=== PATIENT | female | born 1950 | race Caucasian/White ===

== ENCOUNTER 2016-04-11 10:16 | Emergency (ER) | payer MEDICARE, MEDICAID ==
--- NOTE | 2016-04-11 10:29 | EDPRACDOC ---
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 Mode of Arrival:: Ambulance Home Medications: Home Medications Clopidogrel Bisulfate [Plavix] 75 mg PO DAILY 09/08/12 Ramipril [Altace] 2.5 mg PO DAILY 09/08/12 Fenofibrate [Lofibra] 160 mg PO DAILY 01/10/14 Insulin Glargine [Lantus Pen] 30 units SQ HS 01/10/14 Omeprazole [Prilosec] 40 mg PO DAILY 01/10/14 Furosemide [Lasix] 20 mg PO DAILY #14 tablet 08/08/15 Budesonide [Pulmicort] 0.5 mg NEB DAILY PRN 10/02/15 Fluticasone/Salmeterol [Advair 250-50] 1 inh INH BID 10/02/15 Levothyroxine [Synthroid, Levoxyl] 150 mcg PO DAILY 10/02/15 Montelukast Sodium [Singulair] 10 mg PO QHS 10/02/15 Ropinirole HCl 1 mg PO QHS 10/02/15 Divalproex Sodium [Divalproex Sodium ER] 500 mg PO BID 01/21/16 Doxepin HCl 10 mg PO HS 01/21/16 Acetaminophen Tablet [TYLENOL Tablet] 650 mg PO Q6H PRN #1 tablet 01/25/16 Alprazolam [Xanax] 0.5 mg PO BID PRN #60 tablet 01/25/16 Aspirin (Enteric Coated) [Halfprin] 81 mg PO DAILYWM #30 tablet 01/25/16 Atorvastatin Calcium [Lipitor] 10 mg PO DAILY@1800 #30 tablet 01/25/16 Metoprolol Tartrate [Lopressor] 100 mg PO 0600,1800 #60 tablet 01/25/16 POTASSIUM CHLORIDE Tablet [K-DUR 20 mEq Tablet*] 20 meq PO BIDWM #60 tab.er.prt 01/25/16 Oxycodone HCl/Acetaminophen [Percocet 5-325 mg Tablet] 1 each PO TID #60 tablet 01/28/16 Allergies/Adverse Reactions: Allergies Allergy/AdvReac Type Severity Reaction Status Date / Time fish derived Allergy Unknown Hives* Verified 01/21/16 15:54 ciprofloxacin [From Cipro] Allergy Hives Verified 01/21/16 15:54 Penicillins Allergy Hives Verified 01/21/16 15:54 - History of Present Illness Onset: THIS AM - Other History Other History: BLOOD SUGAR FOUND TO BY 50 AT [facility]. DID NOT FALL OUT OF WHEELCHAIR. EMS FOUND PT TO HAVE BLOOD SUGAR 13 AT SNF. GIVEN GLUCAGON. PT FEELS WEAK. PT REPORTS BLOOD SUGAR DROPPING ALL WEEK. BEING TREATED FOR UTI. DENIES CP/ SOB/N/V/URINARY SYMPTOMS. ED Past Medical History - History Reviewed Yes Nurses notes reviewed and agree except as marked - Patient Medical History Neurological History: Reports: Cerebrovascular Accident ("Mini Strokes" several) Cardiac History: Reports: Coronary Artery Disease, Hypertension, Cardiac Catheterization (1974), Stress Test ([place] ([employer] [place]one)), Hypercholesterolemia, Syncope (TIAs, Stroke) Respiratory History: Reports: Asthma, COPD (NEBS), Pneumonia, Emphysema GI/ History: Reports: Urinary Tract Infection, Gastroesophageal Reflux Musculoskeletal History: Reports: Arthritis, Gout, Osteoarthritis Psychological History: Reports: Depression, Anxiety. Denies: Substance Use Disorder Systemic History: Reports: Cancer (Lung cancer treated with radiation but no surgery), Anemia, Diabetes, Hypothyroidism Surgical History: Reports: Cholecystectomy, Hysterectomy, Cardiac Catheterization (1974), Hernia Surgery (ventral hernia repair), Tonsillectomy/ Adnoidectomy, Other (B lens implants,ventral hernia repair, aortoiliac BYPASS, fem-pop L) Date of Last Radiation Treatment: 2010 Date of Last Chemotherapy Date: 2010 - Family Medical History Reports: Hypertension (Mother), Diabetes (Mother), Cancer (Mother,Father), Cardiac Disorders (Mother). Denies: Stroke - Social Medical History Smoking Status: Heavy tobacco smoker (5 or more cigarettes/day or daily pipe/ cigar) (reports 1/2 pack per day) Social History: Denies: Substance Use Disorder EDM Review of Systems - Review of Systems ROS Negative Except as Marked: Yes All systems reviewed and were negative except as marked Constitutional: Fatigue, Weakness Eyes: No Symptoms Reported Respiratory: Cough Cardiovascular: No Symptoms Reported Gastrointestinal: No Symptoms Reported - Physical Exam Constitutional: Alert (Awake), No apparent distress Oriented to: Time, Person, Place Last recorded Vital Signs: Oxygen Pulse Oxygen Saturation O2 Device Oxygen Flow Rate Fraction of Inspired Oxygen ( FIO2) - HEENT Head: Normal ( normocephalic) Eye Exam: Normal (PERRL, EOMI, Sclera white) Oropharynx: Normal (Pharynx:Moist without exudate,Gums-no swelling) Nose: No Symptoms Reported (septum midline) Neck: Normal (FROM, trachea at midline) - Respiratory/Cardiovascular Respiratory: Wheezes (B/L) Cardiovascular: Normal (RRR without murmur, gallop or rub) - GI Auscultation: Normal (NABS) Palpation: Normal (Soft,No rebound or guarding, non distended) Tenderness: Non tender Winters's Sign: Negative - Musculoskeletal Back: Normal (Non-Tender) Extremities: Normal (Normal tone, Pulses 2+ No cyanosis or edema, FROM) - Integumentary Skin: Normal, Warm, Dry Lymphatics: Normal (no adenopathy) - Neurologic Memory Impaired: Normal Motor Function: Normal (Normal tone, Pulses 2+ No cyanosis or edema, FROM) Cranial Nerve: Normal (CN II-X11 intact sensation, strength 5/5) Cerebellar: Normal Mood Description: Normal Perception: Normal - Results 04/11/16 11:09 04/11/16 11:09 - EKG EKG #1 EKG Time: 10:26 -: Yes EKG interpreted by me Rate: bpm: 79 Block: None Hypertrophy: None ST: Normal Comments: NORMAL EKG Decision Time to Discharge: 14:16 - Departure Yes I personally saw and evaluated the patient. Disposition: Home Condition: Stable Final Diagnosis: Hypoglycemia, Hyperkalemia Instructions: Diabetic Hypoglycemia (ED) Education/Counseling Given To: Patient Education/Counseling Given Regarding: Diagnosis Referrals: Abner Caba MD [Primary Care Provider] - One Week Additional Instructions: INCREASE FLUID INTAKE. STOP POTASSIUM UNTIL RESTARTED BY PCP. RECHECK BASIC METABOLIC PANEL IN 4 DAYS. DISCONTINUE KOMBIGLYZE. START METFORMIN 1000 MG BID ONLY.
--- NOTE | 2016-04-11 11:12 | DIRPT ---
CLINICAL DATA: Cough and shortness of breath. Hypoglycemia. Weakness. EXAM: CHEST 2 VIEW COMPARISON: 01/21/2016 and multiple previous FINDINGS: Heart size is normal. There is atherosclerosis of the aorta. The lungs are hyperinflated. There is pulmonary scarring, most pronounced in the medial left upper lobe. The pattern is unchanged from previous exams. No significant bone finding. IMPRESSION: No active disease. Emphysema. Pulmonary scarring and chronic volume loss, most pronounced in the medial left upper lobe Electronically Signed By: Ashutosh Campbell M.D. On: 04/11/2016 11:09
[2016-04-11 11:18] LABS: AUTOMATED BASOPHIL 0.3 % (0-2); AUTOMATED LYMPH 16.1 % (17-44); AUTOMATED MONOCYTE 10.1 % (3-10); AUTOMATED NEUTROPHIL 73.5 % (45-76); MPV 8.9 fL (7.4-10.4)
[2016-04-11 11:27] VITALS: TEMP 97.4; BMI 31.8
[2016-04-11 11:29] LABS: BLOOD UREA NITROGEN 34 MG/DL (7-17); CALC CORRECTED 9.9 MG/DL (8.4-10.2); CALCIUM 9.3 MG/DL (8.4-10.2); CALCULATED OSMOLALITY 285 MOs/Kg (270-290); CHLORIDE 108 mEq/L (98-107); GLUCOSE 137 MG/DL (70-99); SODIUM LEVEL 143 mEq/L (137-146); TOTAL PROTEIN 7.2 G/DL (6.3-8.2)
[2016-04-11 11:35] LABS: PARTIAL THROMB. TIME 46.1 SEC (22-35); PT-INR 1.2
[2016-04-11 12:56] LABS: LEUKOCYTES/URINE 2+ (NEGATIVE); NITRITE/URINE NEG (NEGATIVE); RBC/URINE 0-2 (0-5); URINE OCCULT BLOOD NEG (NEG/TRACE)
[2016-04-11 14:57] VITALS: BP 125/58; PULSE 77
== END 2016-04-11 16:14 | disposition home or self-care (01) ==
LOC: ED 10:16
DX: E11.649 Type 2 diabetes mellitus with hypoglycemia without coma (principal); E87.5 Hyperkalemia; Z79.899 Other long term (current) drug therapy; Z79.4 Long term (current) use of insulin
CPT/HCPCS: 36415; 71020; 80053; 80164; 81001; 82962; 84484; 85025; 85610; 85730; 87077; 87086; 87186; 93005; 99284

== ENCOUNTER 2016-04-14 02:10 | Emergency (ER) | payer MEDICARE, MEDICAID ==
--- NOTE | 2016-04-14 02:25 | EDPRACDOC ---
- General Stated Complaint: FALL Time Seen by Provider: 04/14/16 02:20 Information Source: Patient - History of Present Illness HPI: FREQUENT FALLS; FELL TONIGHT; DENIES LOC; DID HIT HEAD. ON PLAVIX. SKIN TEAR TO LEFT WRIST. NO OTHER SXS. Injuries/Pain Location: Reports: head Reason for Fall: Reports: unknown Loss of Consciousness: no loss of consciousness Associated Symptoms (Fall): Reports: denies symptoms Allergies/Adverse Reactions: Allergies fish derived Allergy (Unknown, Verified 04/14/16 02:26) Hives* RASH AND HIVES WELL.& throat swells ciprofloxacin [From Cipro] Allergy (Verified 04/14/16 02:26) Hives Throat Swelling Penicillins Allergy (Verified 04/14/16 02:26) Hives Throat swelling Home Medications: Ambulatory Orders Clopidogrel Bisulfate [Plavix] 75 mg PO DAILY 09/08/12 Ramipril [Altace] 2.5 mg PO DAILY 09/08/12 Fenofibrate [Lofibra] 160 mg PO DAILY 01/10/14 Insulin Glargine [Lantus Pen] 30 units SQ HS 01/10/14 Omeprazole [Prilosec] 40 mg PO DAILY 01/10/14 Furosemide [Lasix] 20 mg PO DAILY #14 tablet 08/08/15 Budesonide [Pulmicort] 0.5 mg NEB DAILY PRN 10/02/15 Fluticasone/Salmeterol [Advair 250-50] 1 inh INH BID 10/02/15 Levothyroxine [Synthroid, Levoxyl] 150 mcg PO DAILY 10/02/15 Montelukast Sodium [Singulair] 10 mg PO QHS 10/02/15 Ropinirole HCl 1 mg PO QHS 10/02/15 Divalproex Sodium [Divalproex Sodium ER] 500 mg PO BID 01/21/16 Doxepin HCl 10 mg PO HS 01/21/16 Acetaminophen Tablet [TYLENOL Tablet] 650 mg PO Q6H PRN #1 tablet 01/25/16 Alprazolam [Xanax] 0.5 mg PO BID PRN #60 tablet 01/25/16 Aspirin (Enteric Coated) [Halfprin] 81 mg PO DAILYWM #30 tablet 01/25/16 Atorvastatin Calcium [Lipitor] 10 mg PO DAILY@1800 #30 tablet 01/25/16 Metoprolol Tartrate [Lopressor] 100 mg PO 0600,1800 #60 tablet 01/25/16 POTASSIUM CHLORIDE Tablet [K-DUR 20 mEq Tablet*] 20 meq PO BIDWM #60 tab.er.prt 01/25/16 Oxycodone HCl/Acetaminophen [Percocet 5-325 mg Tablet] 1 each PO TID #60 tablet 01/28/16 Metformin HCl 1,000 mg PO BID #20 tab 04/11/16 ED Past Medical History - History Reviewed Yes Nurses notes reviewed and agree except as marked - Patient Medical History Neurological History: Reports: Cerebrovascular Accident ("Mini Strokes" several) Cardiac History: Reports: Coronary Artery Disease, Hypertension, Cardiac Catheterization (1974), Stress Test ([place] ([employer]scar Cone)), Hypercholesterolemia, Syncope (TIAs, Stroke) Respiratory History: Reports: Asthma, COPD (NEBS), Pneumonia, Emphysema GI/ History: Reports: Urinary Tract Infection, Gastroesophageal Reflux Musculoskeletal History: Reports: Arthritis, Gout, Osteoarthritis Psychological History: Reports: Depression, Anxiety. Denies: Substance Use Disorder Systemic History: Reports: Cancer (Lung cancer treated with radiation but no surgery), Anemia, Diabetes, Hypothyroidism Surgical History: Reports: Cholecystectomy, Hysterectomy, Cardiac Catheterization (1974), Hernia Surgery (ventral hernia repair), Tonsillectomy/ Adnoidectomy, Other (B lens implants,ventral hernia repair, aortoiliac BYPASS, fem-pop L) Date of Last Radiation Treatment: 2010 Date of Last Chemotherapy Date: 2010 - Family Medical History Reports: Hypertension (Mother), Diabetes (Mother), Cancer (Mother,Father), Cardiac Disorders (Mother). Denies: Stroke - Social Medical History Smoking Status: Heavy tobacco smoker (5 or more cigarettes/day or daily pipe/ cigar) (reports 1/2 pack per day) Social History: Denies: Substance Use Disorder EDM Review of Systems - Review of Systems ROS Negative Except as Marked: Yes All systems reviewed and were negative except as marked - Physical Exam Constitutional: Alert (Awake), No apparent distress Oriented to: Time, Person, Place Last recorded Vital Signs: Oxygen Pulse Oxygen Saturation O2 Device Oxygen Flow Rate Fraction of Inspired Oxygen ( FIO2) - HEENT Head: Normal ( normocephalic) Eye Exam: Normal (PERRL, EOMI, Sclera white) Oropharynx: Normal (Pharynx:Moist without exudate,Gums-no swelling) Tympanic Membrane: Normal ENT EAC: Normal TMJ: Normal Nose: No Symptoms Reported (septum midline) Neck: Normal (FROM, trachea at midline) - Respiratory/Cardiovascular Respiratory: Normal - CTA (BBS clear to auscultation without adventitious sounds ) Cardiovascular: Normal (RRR without murmur, gallop or rub) - GI Auscultation: Normal (NABS) Palpation: Normal (Soft,No rebound or guarding, non distended) Tenderness: Non tender Winters's Sign: Negative - Musculoskeletal Back: Normal (Non-Tender) Extremities: Normal (Normal tone, Pulses 2+ No cyanosis or edema, FROM) - Integumentary Skin: Normal, Warm, Dry Lymphatics: Normal (no adenopathy) - Neurologic Memory Impaired: Normal Motor Function: Normal (Normal tone, Pulses 2+ No cyanosis or edema, FROM) Cranial Nerve: Normal (CN II-X11 intact sensation, strength 5/5) Cerebellar: Normal Mood Description: Normal Perception: Normal Decision Time to Discharge: 03:41 - Departure Yes I personally saw and evaluated the patient. Disposition: Home Condition: Good Final Diagnosis: BLUNT TRAUMA SP FALL Instructions: Fall Prevention (ED) Education/Counseling Given To: Patient Education/Counseling Given Regarding: Diagnosis, Treatment, Prognosis Referrals: Abner Caba MD [Primary Care Provider] - One Week
[2016-04-14 02:27] VITALS: TEMP 98.2
[2016-04-14 02:37] VITALS: BMI 25.0
--- NOTE | 2016-04-14 03:30 | DIRPT ---
CLINICAL DATA: Found down at senior living, confusion. RIGHT head pain. History of hypertension, stroke, lung cancer. EXAM: CT HEAD WITHOUT CONTRAST CT CERVICAL SPINE WITHOUT CONTRAST TECHNIQUE: Multidetector CT imaging of the head and cervical spine was performed following the standard protocol without intravenous contrast. Multiplanar CT image reconstructions of the cervical spine were also generated. COMPARISON: CT head January 21, [address] chest October 02, 2015 FINDINGS: CT HEAD FINDINGS Moderate ventriculomegaly on the basis of global parenchymal brain volume loss, stable from prior imaging. Old RIGHT thalamus and internal capsule lacunar infarcts. Old RIGHT pontine infarct. No intraparenchymal hemorrhage, mass effect nor midline shift. Patchy supratentorial white matter hypodensities are within normal range for patient's age and though non-specific suggest sequelae of chronic small vessel ischemic disease. No acute large vascular territory infarcts. No abnormal extra-axial fluid collections. Basal cisterns are patent. Moderate calcific atherosclerosis of the carotid siphons. No skull fracture. The included ocular globes and orbital contents are non-suspicious. Status post bilateral ocular lens implants. Small bilateral maxillary sinus air-fluid levels, RIGHT sphenoid sinus mucosal thickening. LEFT middle ear and mastoid effusion. CT CERVICAL SPINE FINDINGS Mild motion degraded examination. Cervical vertebral bodies appear intact and aligned with maintenance of cervical lordosis. Mild C5-6 and C6-7 disc height loss, with uncovertebral hypertrophy C4-5 through C5-6. C1-2 articulation maintained with moderate arthropathy. No destructive bony lesions. No prevertebral soft tissue swelling. Elongated stylomastoid process. Severe calcific atherosclerosis of the carotid bulbs can result in hemodynamically significant stenosis. Status post apparent thyroidectomy. LEFT upper lobe consolidation/mass is unchanged. Centrilobular emphysema. IMPRESSION: CT HEAD: No acute intracranial process. Stable chronic changes including moderate global brain atrophy, old RIGHT thalamus internal capsule lacunar infarcts. CT CERVICAL SPINE: No acute cervical spine fracture or malalignment on this motion degraded examination. Similar appearance of partially imaged LEFT apical lung mass. Electronically Signed By: Carin Hickey M.D. On: 04/14/2016 03:28
[2016-04-14 04:13] VITALS: BP 123/60; PULSE 78
== END 2016-04-14 04:10 | disposition home or self-care (01) ==
LOC: ED 02:10
DX: T14.90 Injury, unspecified (principal); W19.XXXA Unspecified fall, initial encounter; Z91.81 History of falling; I25.10 Atherosclerotic heart disease of native coronary artery without angina pectoris; I10 Essential (primary) hypertension; E78.00 Pure hypercholesterolemia, unspecified; J44.9 Chronic obstructive pulmonary disease, unspecified; J45.909 Unspecified asthma, uncomplicated; K21.9 Gastro-esophageal reflux disease without esophagitis; E11.9 Type 2 diabetes mellitus without complications; E03.9 Hypothyroidism, unspecified; F17.210 Nicotine dependence, cigarettes, uncomplicated; Z79.82 Long term (current) use of aspirin; Z79.4 Long term (current) use of insulin; Z79.899 Other long term (current) drug therapy; Z79.02 Long term (current) use of antithrombotics/antiplatelets
CPT/HCPCS: 70450; 72125; 93005; 99284

== ENCOUNTER 2016-04-15 06:55 | Inpatient (IN) | payer MEDICARE, MEDICAID ==
--- NOTE | 2016-04-15 07:19 | EDPRACDOC ---
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 THE PT HAS BEEN HERE RECENTLY WITH MULTIPLE FALLS. 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 PT'S BS WAS 73. SHE DOES NOT RECALL WHAT HAPPENED TO MAKE HER FALL. PT DID HAVE A UA DONE ON 04/11. THE CX CAME BACK + FOR MULTIDRUG RESISTANT E.COLI. PT'S MAR DOES NOT REFLECT THAT SHE'S BEEN TX'D. CT HEAD YESTERDAY WAS NL. Pain Severity: Reports: Moderate Injuries/Pain Location: Reports: no injury Reason for Fall: Reports: other Associated Symptoms (Fall): Reports: denies symptoms Allergies/Adverse Reactions: Allergies fish derived Allergy (Unknown, Verified 04/15/16 07:12) Hives* RASH AND HIVES WELL.& throat swells ciprofloxacin [From Cipro] Allergy (Verified 04/15/16 07:12) Hives Throat Swelling Penicillins Allergy (Verified 04/15/16 07:12) Hives Throat swelling Home Medications: Ambulatory Orders Clopidogrel Bisulfate [Plavix] 75 mg PO DAILY 09/08/12 Ramipril [Altace] 2.5 mg PO DAILY 09/08/12 Fenofibrate [Lofibra] 160 mg PO DAILY 01/10/14 Insulin Glargine [Lantus Pen] 24 units SQ HS 01/10/14 Omeprazole [Prilosec] 40 mg PO DAILY 01/10/14 Furosemide [Lasix] 20 mg PO DAILY #14 tablet 08/08/15 Budesonide [Pulmicort] 0.5 mg NEB DAILY PRN 10/02/15 Fluticasone/Salmeterol [Advair 250-50] 1 puff INH BID 10/02/15 Levothyroxine [Synthroid, Levoxyl] 150 mcg PO DAILY 10/02/15 Montelukast Sodium [Singulair] 10 mg PO QHS 10/02/15 Ropinirole HCl 1 mg PO QHS 10/02/15 Divalproex Sodium [Divalproex Sodium ER] 500 mg PO BID 01/21/16 Doxepin HCl 10 mg PO HS 01/21/16 Acetaminophen Tablet [TYLENOL Tablet] 650 mg PO Q6H PRN #1 tablet 01/25/16 Alprazolam [Xanax] 0.5 mg PO BID PRN #60 tablet 01/25/16 Aspirin (Enteric Coated) [Halfprin] 81 mg PO DAILYWM #30 tablet 01/25/16 Atorvastatin Calcium [Lipitor] 10 mg PO DAILY@1800 #30 tablet 01/25/16 POTASSIUM CHLORIDE Tablet [K-DUR 20 mEq Tablet*] 20 meq PO BIDWM #60 tab.er.prt 01/25/16 Metformin HCl 1,000 mg PO BID #20 tab 04/11/16 Guaifenesin [Robitussin] 10 ml PO Q6H PRN 04/15/16 L. Acidophilus/Strept/LA P-Ben [Risaquad Capsules] 1 cap PO DAILY 04/15/16 Mag Hydrox/Al Hydrox/Simeth [Maalox Suspension] 30 ml PO QID PRN MDD 120ML 04/15 Metoprolol Tartrate [Lopressor] 50 mg PO BID 04/15/16 Oseltamivir Phosphate [Tamiflu] 75 mg PO DAILY 04/15/16 Oxycodone HCl/Acetaminophen [Percocet 5-325 mg Tablet] 1 tab PO TID 04/15/16 Phosp Acid/Dextrose/Fructose [Emetrol Oral Solution] 30 ml PO .[id number] PRN MDD 120ML 04/15/16 ED Past Medical History - Patient Medical History Neurological History: Reports: Cerebrovascular Accident ("Mini Strokes" several) Cardiac History: Reports: Coronary Artery Disease, Hypertension, Cardiac Catheterization (1974), Stress Test ([place] ([employer]scar Cone)), Hypercholesterolemia, Syncope (TIAs, Stroke) Respiratory History: Reports: Asthma, COPD (NEBS), Pneumonia, Emphysema GI/ History: Reports: Urinary Tract Infection, Gastroesophageal Reflux Musculoskeletal History: Reports: Arthritis, Gout, Osteoarthritis Psychological History: Reports: Depression, Anxiety. Denies: Substance Use Disorder Systemic History: Reports: Cancer (Lung cancer treated with radiation but no surgery), Anemia, Diabetes, Hypothyroidism Surgical History: Reports: Cholecystectomy, Hysterectomy, Cardiac Catheterization (1974), Hernia Surgery (ventral hernia repair), Tonsillectomy/ Adnoidectomy, Other (B lens implants,ventral hernia repair, aortoiliac BYPASS, fem-pop L) Date of Last Radiation Treatment: 2010 Date of Last Chemotherapy Date: 2010 - Family Medical History Reports: Hypertension (Mother), Diabetes (Mother), Cancer (Mother,Father), Cardiac Disorders (Mother). Denies: Stroke - Social Medical History Smoking Status: Heavy tobacco smoker (5 or more cigarettes/day or daily pipe/ cigar) Social History: Denies: Substance Use Disorder ETOH: None Substance Abuse: None Lives In: Home EDM Review of Systems - Review of Systems ROS Negative Except as Marked: Yes All systems reviewed and were negative except as marked - Physical Exam Constitutional: Alert (Awake), No apparent distress Oriented to: Time, Person, Place Last recorded Vital Signs: Last Vital Signs Temp 98.7 F 04/15/16 07:09 Pulse 95 04/15/16 07:09 Resp 20 04/15/16 07:09 BP 115/81 04/15/16 07:09 Pulse Ox 92 04/15/16 07:09 Oxygen Pulse Oxygen Saturation 92 O2 Device Room Air Oxygen Flow Rate Fraction of Inspired Oxygen ( FIO2) - HEENT Head: Normal ( normocephalic) Eye Exam: Normal (PERRL, EOMI, Sclera white) Oropharynx: Normal (Pharynx:Moist without exudate,Gums-no swelling) ENT EAC: Normal TMJ: Normal Nose: No Symptoms Reported (septum midline) Neck: Normal (FROM, trachea at midline) - Respiratory/Cardiovascular Respiratory: Normal - CTA (BBS clear to auscultation without adventitious sounds ) Cardiovascular: Normal (RRR without murmur, gallop or rub) - GI Auscultation: Normal (NABS) Palpation: Normal (Soft,No rebound or guarding, non distended) Tenderness: Non tender Winters's Sign: Negative Rectal Exam: Heme negative stool Stool: Brown - Musculoskeletal Back: Normal (Non-Tender) Extremities: Normal (Normal tone, Pulses 2+ No cyanosis or edema, FROM) - Integumentary Skin: Warm, Dry, Other (SKIN TEAR LEFT WRIST) Lymphatics: Normal (no adenopathy) - Neurologic Memory Impaired: Normal Motor Function: Normal (Normal tone, Pulses 2+ No cyanosis or edema, FROM) Cranial Nerve: Normal (CN II-X11 intact sensation, strength 5/5) Cerebellar: Normal Mood Description: Normal Thought: Coherent Perception: Normal - Re-evaluation Re-evaluation 1 Re-evaluation Time: 09:49 (VERY SOMNOLENT. REFUSED TO EAT.) - Results 04/15/16 07:35 04/15/16 07:35 POC Capillary Glucose 75 MG/DL (70-99) 04/15/16 07:01 Lab Results 04/15/16 07:01 POC Capillary Glucose 75 - Departure Yes I personally saw and evaluated the patient. Disposition: Admit IP To This Hospital Condition: Fair Final Diagnosis: Accidental fall, UTI (urinary tract infection), Acute post-hemorrhagic anemia, CRI (chronic renal insufficiency), Ambulatory dysfunction, Hyperkalemia Instructions: RICE: Routine Care for Injuries, Urinary Tract Infection in Women (ED), Dysuria Education/Counseling Given To: Patient Education/Counseling Given Regarding: Diagnosis, Treatment Referrals: Abner Caba MD [Primary Care Provider] - One Week Decision to Admit Time: 09:53 Decision to admit date: 04/15/16 Decision to admit: from ED - Physician Consulted Hospitalist Provider Called: Lowell Apodaca
[2016-04-15] MEDS ORDERED: NITROFURANTOIN 100 MG CAP PO ONE (07:22)
[2016-04-15 07:44] LABS: MPV 7.7 fL (7.4-10.4)
[2016-04-15 07:54] LABS: BLOOD UREA NITROGEN 38 MG/DL (7-17); CALCIUM 8.7 MG/DL (8.4-10.2); CALCULATED OSMOLALITY 279 MOs/Kg (270-290); CHLORIDE 109 mEq/L (98-107); GLUCOSE 80 MG/DL (70-99); SODIUM LEVEL 141 mEq/L (137-146); TOTAL PROTEIN 6.5 G/DL (6.3-8.2)
[2016-04-15 08:00] LABS: VALPROIC ACID LEVEL 42.1 MCG/ML (50-100)
[2016-04-15 08:16] LABS: LEUKOCYTES/URINE 2+ (NEGATIVE); NITRITE/URINE NEG (NEGATIVE); URINE OCCULT BLOOD NEG (NEG/TRACE)
[2016-04-15 08:29] LABS: SEG NEUTROPHIL 67 % (45-76)
[2016-04-15] MEDS ORDERED: NS 1,000 ML IV ONE (08:32)
[2016-04-15 08:46] LABS: WBC/URINE TNTC (0-5)
--- NOTE | 2016-04-15 09:45 | DIRPT ---
CLINICAL DATA: Multiple falls. EXAM: CHEST 2 VIEW COMPARISON: 04/11/2016 FINDINGS: Increasing bibasilar opacities, likely atelectasis. Persistent density in the medial left upper lobe, likely radiation change seen on prior CT. Heart is normal size. No effusions. Mediastinal contours are within normal limits. No acute bony abnormality. IMPRESSION: Bibasilar opacities, likely atelectasis. Electronically Signed By: Rex Melendrez M.D. On: 04/15/2016 09:42
[2016-04-15] MEDS ORDERED: CEFTRIAXONE 1 GM in D5W 100 ML IV ONE (09:51)
[2016-04-15 10:21] LABS: FREE T3 3.96 pg/mL (2.77-5.27)
[2016-04-15 10:35] LABS: hTSH < 0.02 uIU/mL (0.5-4.67)
[2016-04-15] MEDS ORDERED: MAGNESIUM HYDROXIDE 30 ML BOTTLE PO PRN (10:38)
[2016-04-15] MEDS ORDERED: ACETAMINOPHEN 650 MG SUPP PR PRN (10:38)
[2016-04-15] MEDS ORDERED: DEXTROSE 25 GM/50 ML PFS IV PRN (10:38)
[2016-04-15] MEDS ORDERED: BENZONATATE 100 MG PERLES PO PRN (10:38)
[2016-04-15] MEDS ORDERED: GLUCAGON 1 MG VIAL SQ PRN (10:38)
[2016-04-15] MEDS ORDERED: GUAIFENESIN 200 MG/10 ML UDC PO PRN (10:38)
[2016-04-15] MEDS ORDERED: ZOLPIDEM TARTRATE 5 MG TAB PO PRN (10:38)
[2016-04-15] MEDS ORDERED: GLUCOSE (ORAL GEL) 15 GM TUBE PO PRN (10:38)
[2016-04-15] MEDS ORDERED: Docusate Sodium 100 MG CAP PO PRN (10:38)
[2016-04-15] MEDS ORDERED: PROMETHAZINE 25 MG/ML VIAL IV PRN (10:38)
--- NOTE | 2016-04-15 10:38 | HISTPHYS ---
- Chief Complaint falls, altered mental status - History of Present Illness Ms Gray is a 65-year-old white female with multiple chronic medical problems who currently resides in [facility]. This is her 3rd visit to the emergency room in the last 4 days. Previous visits were for falls and hypoglycemia. Today she is confused and unable provide any history. Labs show a urinary tract infection. She is extremely weak and has multiple bruises. She appears dehydrated and anemic. She has multiple electrolyte abnormalities. She will be admitted to the hospital for further evaluation management of urinary tract infection, altered mental status, dehydration, hyperkalemia acute kidney injury. - Medical History Cardiac History: Reports: Coronary Artery Disease, Hypertension, Cardiac Catheterization (1974), Stress Test ([place] ([facility])), Hypercholesterolemia, Syncope (TIAs, Stroke) Respiratory History: Reports: Asthma, COPD (NEBS), Pneumonia, Emphysema GI/ History: Reports: Urinary Tract Infection, Gastroesophageal Reflux Musculoskeletal History: Reports: Arthritis, Gout, Osteoarthritis Systemic History: Reports: Cancer (Lung cancer treated with radiation but no surgery), Anemia, Diabetes, Hypothyroidism Neurological History: Reports: Cerebrovascular Accident ("Mini Strokes" several) Psychological History: Reports: Depression, Anxiety. Denies: Substance Use Disorder - Surgical History Reports: Cholecystectomy, Hysterectomy, Cardiac Catheterization (1974), Hernia Surgery (ventral hernia repair), Tonsillectomy/Adnoidectomy, Other (B lens implants,ventral hernia repair, aortoiliac BYPASS, fem-pop L) - Medictions/Allergies Allergies fish derived Allergy (Unknown, Verified 04/15/16 07:12) Hives* RASH AND HIVES WELL.& throat swells ciprofloxacin [From Cipro] Allergy (Verified 04/15/16 07:12) Hives Throat Swelling Penicillins Allergy (Verified 04/15/16 07:12) Hives Throat swelling Current Medication List: Reviewed Home Medications Clopidogrel Bisulfate [Plavix] 75 mg PO DAILY 09/08/12 Ramipril [Altace] 2.5 mg PO DAILY 09/08/12 Fenofibrate [Lofibra] 160 mg PO DAILY 01/10/14 Insulin Glargine [Lantus Pen] 24 units SQ HS 01/10/14 Omeprazole [Prilosec] 40 mg PO DAILY 01/10/14 Furosemide [Lasix] 20 mg PO DAILY #14 tablet 08/08/15 Budesonide [Pulmicort] 0.5 mg NEB DAILY PRN 10/02/15 Fluticasone/Salmeterol [Advair 250-50] 1 puff INH BID 10/02/15 Levothyroxine [Synthroid, Levoxyl] 150 mcg PO DAILY 10/02/15 Montelukast Sodium [Singulair] 10 mg PO QHS 10/02/15 Ropinirole HCl 1 mg PO QHS 10/02/15 Divalproex Sodium [Divalproex Sodium ER] 500 mg PO BID 01/21/16 Doxepin HCl 10 mg PO HS 01/21/16 Acetaminophen Tablet [TYLENOL Tablet] 650 mg PO Q6H PRN #1 tablet 01/25/16 Alprazolam [Xanax] 0.5 mg PO BID PRN #60 tablet 01/25/16 Aspirin (Enteric Coated) [Halfprin] 81 mg PO DAILYWM #30 tablet 01/25/16 Atorvastatin Calcium [Lipitor] 10 mg PO DAILY@1800 #30 tablet 01/25/16 POTASSIUM CHLORIDE Tablet [K-DUR 20 mEq Tablet*] 20 meq PO BIDWM #60 tab.er.prt 01/25/16 Metformin HCl 1,000 mg PO BID #20 tab 04/11/16 Guaifenesin [Robitussin] 10 ml PO Q6H PRN 04/15/16 L. Acidophilus/Strept/LA P-Ben [Risaquad Capsules] 1 cap PO DAILY 04/15/16 Mag Hydrox/Al Hydrox/Simeth [Maalox Suspension] 30 ml PO QID PRN MDD 120ML 04/15 Metoprolol Tartrate [Lopressor] 50 mg PO BID 04/15/16 Oseltamivir Phosphate [Tamiflu] 75 mg PO DAILY 04/15/16 Oxycodone HCl/Acetaminophen [Percocet 5-325 mg Tablet] 1 tab PO TID 04/15/16 Phosp Acid/Dextrose/Fructose [Emetrol Oral Solution] 30 ml PO .[id number] PRN MDD 120ML 04/15/16 - Family History Reports: Hypertension (Mother), Diabetes (Mother), Cancer (Mother,Father), Cardiac Disorders (Mother). Denies: Stroke - Social History Travel Outside of [place] in the Last 3 Months?: No Lives: in Assisted Living Social History: Denies: Alcohol Use, Substance Use Disorder - Review of Systems Yes Review of systems cannot be obtained due to the patient's medical condition (Altered mental status) - Physical Exam Constitutional: No apparent distress, Alert (Awake), Confused. negative: Well appearing (Acutely ill-appearing) Oriented to: Not Oriented Exam: Last Vital Signs Temp 98.7 F 04/15/16 07:09 Pulse 85 04/15/16 08:45 Resp 18 04/15/16 08:45 BP 152/74 04/15/16 08:45 Pulse Ox 96 04/15/16 08:45 Intake & Output 04/14/16 04/15/16 04/15/16 23:59 07:59 15:59 Patient's weight 74.843 kg - HEENT Head: Normal ( normocephalic) Eye: Normal (PERRL, EOMI, Sclera white) Oropharynx: Normal (Pharynx:Moist without exudate,Gums-no swelling) ENT EAC: Normal TMJ: Normal Nose: No Symptoms Reported (septum midline) - Respiratory/Cardiovascular Respiratory: Normal - CTA (BBS clear to auscultation without adventitious sounds ) Cardiovascular: Normal. negative: Irregular - GI Auscultation: Normal (NABS) Palpation: Normal (Soft,No rebound or guarding, non distended) Tenderness: Non tender Rectal Exam: Heme negative stool Stool: Brown - Musculoskeletal Back: Normal (Non-Tender). negative: Abrasion Extremities: Normal (Normal tone, Pulses 2+ No cyanosis or edema, FROM), Femoral Pulse, Pedal Pulse. negative: Calf Tenderness - Integumentary Skin: Warm, Dry, Other (SKIN TEAR LEFT WRIST) Lymphatics: Normal (no adenopathy). negative: Adenopathy - Neurologic Memory Impaired: Short-term, Long-term Motor Function: Normal Cranial Nerve: Normal Cerebellar: Normal Mood Description: Anxious Thought: negative: Coherent Perception: negative: Normal - Focused CV Perfusion Exam Vital Signs: Last Vital Signs Temp 98.7 F 04/15/16 07:09 Pulse 85 04/15/16 08:45 Resp 18 04/15/16 08:45 BP 152/74 04/15/16 08:45 Pulse Ox 96 04/15/16 08:45 - Lab Results Laboratory Results - last 24 hr 01/01/2004/15/16 04/15/16 07:01 07:35 07:35 WBC 12.7 H RBC 2.57 L Hgb 8.8 L D Hct 27.1 L MCV 106 H MCH 34.3 H MCHC 32.5 L RDW 15.2 H Plt Count 229 MPV 7.7 Neut % (Auto) Cancelled Lymph % (Auto) Cancelled [place] % (Auto) Cancelled Eos % (Auto) Cancelled Baso % (Auto) Cancelled Absolute Neuts (auto) Cancelled Absolute Lymphs (auto) Cancelled Seg Neuts % (Manual) 67 Band Neutrophils % 1 Lymphocytes % (Manual) 16 L Monocytes % (Manual) 15 H Eosinophils % (Manual) 1 Absolute Neutrophils 8.64 H Absolute Lymphocytes 2.03 Platelet Estimate Norm RBC Morphology 1+ aniso Sodium 141 Potassium 5.4 H Chloride 109 H Carbon Dioxide 20 L Anion Gap 17 H BUN 38 H Creatinine 1.40 H Estimated GFR (MDRD) 38 L Glucose 80 POC Capillary Glucose 75 Hemoglobin A1c Calculated Osmolality 279 Lactic Acid Calcium 8.7 Corrected Calcium 10.0 Total Bilirubin 1.2 AST 19 ALT 21 Alkaline Phosphatase 61 Troponin I Total Protein 6.5 Albumin 2.7 L TSH < 0.02 L Free T4 3.20 H Free T3 3.96 Urine Color Urine Clarity Urine pH Ur Specific [place] Urine Protein Urine Glucose (UA) Urine Ketones Urine Occult Blood Urine Nitrite Urine Bilirubin Urine Urobilinogen Ur Leukocyte Esterase Urine RBC Urine WBC Urine WBC Clumps Ur Epithelial Cells Urine Bacteria Hyaline Casts Urine Mucus Valproic Acid 42.1 L Blood Type Antibody Screen 04/15/16 04/15/16 04/15/16 07:35 07:35 07:50 WBC RBC Hgb Hct MCV MCH MCHC RDW Plt Count MPV Neut % (Auto) Lymph % (Auto) [place] % (Auto) Eos % (Auto) Baso % (Auto) Absolute Neuts (auto) Absolute Lymphs (auto) Seg Neuts % (Manual) Band Neutrophils % Lymphocytes % (Manual) Monocytes % (Manual) Eosinophils % (Manual) Absolute Neutrophils Absolute Lymphocytes Platelet Estimate RBC Morphology Sodium Potassium Chloride Carbon Dioxide Anion Gap BUN Creatinine Estimated GFR (MDRD) Glucose POC Capillary Glucose Hemoglobin A1c 4.8 Calculated Osmolality Lactic Acid Calcium Corrected Calcium Total Bilirubin AST ALT Alkaline Phosphatase Troponin I < 0.01 Total Protein Albumin TSH Free T4 Free T3 Urine Color Yellow Urine Clarity Cldy Urine pH 5.0 Ur Specific [place] 1.020 Urine Protein Neg Urine Glucose (UA) Neg Urine Ketones Neg Urine Occult Blood Neg Urine Nitrite Neg Urine Bilirubin Neg Urine Urobilinogen 8 H Ur Leukocyte Esterase 2+ H Urine RBC 2-5 Urine WBC Tntc H Urine WBC Clumps Present H Ur Epithelial Cells Occ Urine Bacteria 4+ H Hyaline Casts 2-5 H Urine Mucus Occ Valproic Acid Blood Type Antibody Screen 04/15/16 04/15/16 04/15/16 08:43 10:40 12:00 WBC RBC Hgb Hct MCV MCH MCHC RDW Plt Count MPV Neut % (Auto) Lymph % (Auto) [place] % (Auto) Eos % (Auto) Baso % (Auto) Absolute Neuts (auto) Absolute Lymphs (auto) Seg Neuts % (Manual) Band Neutrophils % Lymphocytes % (Manual) Monocytes % (Manual) Eosinophils % (Manual) Absolute Neutrophils Absolute Lymphocytes Platelet Estimate RBC Morphology Sodium Potassium Chloride Carbon Dioxide Anion Gap BUN Creatinine Estimated GFR (MDRD) Glucose POC Capillary Glucose 75 Hemoglobin A1c Calculated Osmolality Lactic Acid 1.4 Calcium Corrected Calcium Total Bilirubin AST ALT Alkaline Phosphatase Troponin I Total Protein Albumin TSH Free T4 Free T3 Urine Color Urine Clarity Urine pH Ur Specific [place] Urine Protein Urine Glucose (UA) Urine Ketones Urine Occult Blood Urine Nitrite Urine Bilirubin Urine Urobilinogen Ur Leukocyte Esterase Urine RBC Urine WBC Urine WBC Clumps Ur Epithelial Cells Urine Bacteria Hyaline Casts Urine Mucus Valproic Acid Blood Type B POSITIVE Antibody Screen Negative - Assessment (1) UTI (urinary tract infection) N39.0 - URINARY TRACT INFECTION, SITE NOT SPECIFIED Acute Present on Admission: Yes Qualifiers: Urinary tract infection type: acute cystitis Hematuria presence: without hematuria Qualified Code(s): N30.00 - Acute cystitis without hematuria IV fluids, IV Rocephin and monitor cultures (2) Anemia D64.9 - ANEMIA, UNSPECIFIED Acute Present on Admission: Yes Qualifiers: Anemia type: unspecified type Qualified Code(s): D64.9 - Anemia, unspecified This is a new diagnosis for her. She is on aspirin and Plavix. Monitor for bleeding. She is unable to state whether or not she has had any bleeding. (3) Acute kidney injury N17.9 - ACUTE KIDNEY FAILURE, UNSPECIFIED Acute Present on Admission: Yes IV fluids and follow. (4) Accidental fall W19.XXXA - UNSPECIFIED FALL, INITIAL ENCOUNTER Acute Present on Admission: Yes Likely multifactorial including related to anemia, dehydration, infection. Unknown baseline cognitive function but clearly confused (5) Ambulatory dysfunction R26.2 - DIFFICULTY IN WALKING, NOT ELSEWHERE CLASSIFIED Acute Present on Admission: Yes Treat above issues. Physical therapy when stable (6) Hyperkalemia E87.5 - HYPERKALEMIA Acute Present on Admission: Yes Mild. Expect will improve with IV hydration Case Care Discussed with: Consultants, Nursing Staff, Resource Management
[2016-04-15] MEDS ORDERED: Aluminum;Magnesium;Simethicone 30 ML UDC PO PRN (10:44)
[2016-04-15] MEDS ORDERED: ACETAMINOPHEN 325 MG/TAB TABLET PO PRN (10:44)
[2016-04-15] MEDS ORDERED: BUDESONIDE 0.5 MG NEB NEB PRN (10:44)
[2016-04-15] MEDS ORDERED: NS/KCl 20 mEq 1,000 ML IV SCH (11:00)
[2016-04-15] MEDS ORDERED: FLUTICASONE/SALMETEROL 250/50 DISKUS INH SCH (12:00)
[2016-04-15] MEDS: REGULAR INSULIN 100 UNITS/ML - 3 ML VIAL SQ SCH ×3 (12:15→22:27)
[2016-04-15] MEDS: PROBIOTIC BLEND TAB PO SCH ×2 (12:30→12:33)
[2016-04-15] MEDS: NS 1,000 ML IV SCH ×2 (12:34→20:13)
[2016-04-15] MEDS: ENOXAPARIN 40 MG/0.4 ML PFS SQ SCH (17:55)
[2016-04-15] MEDS: ATORVASTATIN 10 MG TAB PO SCH (17:55)
[2016-04-15] MEDS ORDERED: POTASSIUM CHLORIDE 20 MEQ TAB PO SCH (18:00)
[2016-04-15] MEDS: FLUTICASONE/SALMETEROL 250/50 DISKUS INH SCH (21:54)
[2016-04-15] MEDS: ALPRAZOLAM 0.5 MG TAB PO PRN (22:17)
[2016-04-15] MEDS: ACETAMINOPHEN 325 MG/TAB TABLET PO PRN (22:20)
[2016-04-15] MEDS: DIVALPROEX SODIUM 500 MG EXT REL TAB PO SCH (22:27)
[2016-04-15] MEDS: ROPINIROLE 1 MG TAB PO SCH (22:34)
[2016-04-15] MEDS: DOXEPIN 10 MG CAP PO SCH (22:34)
[2016-04-15] MEDS: MONTELUKAST SODIUM 10 MG TAB PO SCH (22:35)
[2016-04-15] MEDS: METOPROLOL TARTRATE 50 MG TAB PO SCH (22:36)
[2016-04-16] MEDS: PANTOPRAZOLE 40 MG TAB PO SCH (04:48)
[2016-04-16] MEDS ORDERED: FLUTICASONE/SALMETEROL 250/50 DISKUS INH SCH (06:00)
[2016-04-16] MEDS: REGULAR INSULIN 100 UNITS/ML - 3 ML VIAL SQ SCH ×4 (06:39→22:17)
[2016-04-16] MEDS: FENOFIBRATE 145 MG TAB PO SCH (07:57)
[2016-04-16] MEDS: LEVOTHYROXINE 150 MCG (0.15 MG)TAB PO SCH (08:10)
[2016-04-16] MEDS: CLOPIDOGREL 75 MG TAB PO SCH (08:10)
[2016-04-16] MEDS: DIVALPROEX SODIUM 500 MG EXT REL TAB PO SCH ×2 (08:11→22:16)
[2016-04-16] MEDS: RAMIPRIL 2.5 MG CAP PO SCH (08:15)
[2016-04-16] MEDS: FUROSEMIDE 20 MG TAB PO SCH (08:15)
[2016-04-16] MEDS: METOPROLOL TARTRATE 50 MG TAB PO SCH ×2 (08:16→22:16)
[2016-04-16 08:56] LABS: MPV 8.2 fL (7.4-10.4)
[2016-04-16 09:27] LABS: BLOOD UREA NITROGEN 24 MG/DL (7-17); CALCIUM 8.9 MG/DL (8.4-10.2); CALCULATED OSMOLALITY 282 MOs/Kg (270-290); CHLORIDE 113 mEq/L (98-107); GLUCOSE 110 MG/DL (70-99); SODIUM LEVEL 144 mEq/L (137-146)
[2016-04-16] MEDS: FLUTICASONE/SALMETEROL 250/50 DISKUS INH SCH ×2 (09:28→19:00)
[2016-04-16] MEDS: ONDANSETRON HCL 4 MG/2 ML VIAL IV PRN (09:58)
[2016-04-16] MEDS: CEFTRIAXONE 1 GM in D5W 100 ML IV SCH (09:58)
--- NOTE | 2016-04-16 13:00 | GENMEDPROG ---
Chief Complaint: Much more alert today. Still very confused. Complains of nausea. Notes Reviewed: Yes Events from last night noted and discussed with Clinical Staff Current Medication List: Reviewed Currently: Reports: Nausea and Vomiting. Denies: Cough, Wheezing, PAN, SOB, Abdominal Pain, Chest Pain DVT Prophylaxis: Yes - Physical Examination Vital Signs and I&O: Last Vital Signs Temp 98.4 F 04/16/16 06:00 Pulse 91 04/16/16 06:00 Resp 20 04/16/16 06:00 BP 122/57 L 04/16/16 06:00 Pulse Ox 96 04/16/16 06:00 Oxygen Pulse Oxygen Saturation 96 O2 Device Room Air Oxygen Flow Rate Fraction of Inspired Oxygen ( FIO2) Intake & Output 04/13/16 04/14/16 04/15/16 04/16/16 23:59 23:59 23:59 23:59 Intake Total 2286 Output Total 125 700 Balance 2161 -700 Patient's weight 67.132 kg 68.748 kg General: Alert, Cooperative, Mild distress. negative: Oriented x3, Well appearing (Ill-appearing) HEENT: Normal, PERRLA, EOMI, Anicteric Sclera Neck: Non-tender, Full range of motion, Normal Trachea alignment, Normal inspection. negative: JVD Lymphatics: Normal (no adenopathy). negative: Adenopathy Respiratory: Normal - CTA (BBS clear to auscultation without adventitious sounds ) Cardiovascular: Regular rate and rhythm, No Gallops,Rubs/Murmurs GI: Normal bowel sounds, Soft, Non tender, No hepatospenomegaly Extremities/Musculoskeletal: Normal pulses. negative: Tenderness, Swelling, Edema Skin: Warm,Dry and Intact, No rashes, No breakdown, No significant lesion Neurological: Normal speech, Strength at 5/5 X4 ext, Normal tone Psych/Mental Status: Confused Lab/DI/Studies Reviewed: Laboratory Results - last 24 hr 04/15/16 04/15/16 04/15/16 16:54 17:21 17:43 WBC RBC Hgb Hct MCV MCH MCHC RDW Plt Count MPV Sodium Potassium Chloride Carbon Dioxide Anion Gap BUN Creatinine Estimated GFR (MDRD) Glucose POC Capillary Glucose 42 L* 44 L* 78 Calculated Osmolality Calcium 04/15/16 04/15/16 04/16/16 18:01 22:11 01:50 WBC RBC Hgb Hct MCV MCH MCHC RDW Plt Count MPV Sodium Potassium Chloride Carbon Dioxide Anion Gap BUN Creatinine Estimated GFR (MDRD) Glucose POC Capillary Glucose 124 H 74 133 H Calculated Osmolality Calcium 04/16/16 04/16/16 04/16/16 05:39 08:01 08:01 WBC 14.2 H RBC 2.64 L Hgb 9.0 L Hct 27.5 L MCV 104 H MCH 34.0 H MCHC 32.6 L RDW 15.1 H Plt Count 200 MPV 8.2 Sodium 144 Potassium 4.6 Chloride 113 H Carbon Dioxide 18 L Anion Gap 18 H BUN 24 H Creatinine 0.80 Estimated GFR (MDRD) > 60 Glucose 110 H POC Capillary Glucose 112 H Calculated Osmolality 282 Calcium 8.9 04/16/16 11:25 WBC RBC Hgb Hct MCV MCH MCHC RDW Plt Count MPV Sodium Potassium Chloride Carbon Dioxide Anion Gap BUN Creatinine Estimated GFR (MDRD) Glucose POC Capillary Glucose 106 H Calculated Osmolality Calcium - Assessment (1) UTI (urinary tract infection) Acute N39.0 - URINARY TRACT INFECTION, SITE NOT SPECIFIED Qualifiers: Urinary tract infection type: acute cystitis Hematuria presence: without hematuria Qualified Code(s): N30.00 - Acute cystitis without hematuria Comment/Plan: Much more alert and interactive today. However still very confused. Complains of nausea. Continue IV fluids and IV antibiotics. Culture pending (2) Anemia Acute D64.9 - ANEMIA, UNSPECIFIED Qualifiers: Anemia type: unspecified type Qualified Code(s): D64.9 - Anemia, unspecified Comment/Plan: New diagnosis for her and is slightly better today. She is on aspirin and Plavix. Monitor for bleeding. She is unable to state whether or not she has had any bleeding. (3) Acute kidney injury Acute N17.9 - ACUTE KIDNEY FAILURE, UNSPECIFIED Comment/Plan: Better today. Electrolytes improving. Continue IV fluids. (4) Accidental fall Acute W19.XXXA - UNSPECIFIED FALL, INITIAL ENCOUNTER Comment/Plan: Likely multifactorial including related to anemia, dehydration, infection. Fallen multiple times with several ER visits this past week. Treating infection and dehydration. Physical therapy evaluation. (5) Ambulatory dysfunction Acute R26.2 - DIFFICULTY IN WALKING, NOT ELSEWHERE CLASSIFIED Comment/Plan: Treat above issues. Physical therapy when stable (6) Hyperkalemia Acute E87.5 - HYPERKALEMIA Comment/Plan: Improved. Case Care Discussed with: Patient, Nursing Staff, Physical Therapy, Resource Management, Respiratory Therapy, Glass Vial Filler
[2016-04-16] MEDS ORDERED: Vaccine Screening Complete SCH (17:00)
[2016-04-16] MEDS: NS 1,000 ML IV SCH ×2 (17:15→17:17)
[2016-04-16] MEDS: ENOXAPARIN 40 MG/0.4 ML PFS SQ SCH (17:16)
[2016-04-16] MEDS: ATORVASTATIN 10 MG TAB PO SCH (17:16)
[2016-04-16] MEDS: ALPRAZOLAM 0.5 MG TAB PO PRN (22:15)
[2016-04-16] MEDS: DOXEPIN 10 MG CAP PO SCH (22:16)
[2016-04-16] MEDS: MONTELUKAST SODIUM 10 MG TAB PO SCH (22:16)
[2016-04-16] MEDS: ROPINIROLE 1 MG TAB PO SCH (22:16)
[2016-04-17] MEDS: NS 1,000 ML IV SCH ×3 (03:00→20:26)
[2016-04-17] MEDS: REGULAR INSULIN 100 UNITS/ML - 3 ML VIAL SQ SCH ×4 (07:19→20:59)
[2016-04-17 07:38] LABS: AUTOMATED BASOPHIL 0.3 % (0-2); AUTOMATED EOSINOPHIL 0.6 % (0-5); AUTOMATED LYMPH 17.8 % (17-44); AUTOMATED MONOCYTE 11.4 % (3-10); AUTOMATED NEUTROPHIL 69.9 % (45-76)
[2016-04-17 07:56] LABS: BLOOD UREA NITROGEN 20 MG/DL (7-17); CALCIUM 8.2 MG/DL (8.4-10.2); CALCULATED OSMOLALITY 281 MOs/Kg (270-290); CHLORIDE 114 mEq/L (98-107); GLUCOSE 110 MG/DL (70-99); SODIUM LEVEL 144 mEq/L (137-146)
[2016-04-17] MEDS: PANTOPRAZOLE 40 MG TAB PO SCH (08:02)
[2016-04-17] MEDS: LEVOTHYROXINE 150 MCG (0.15 MG)TAB PO SCH (08:26)
[2016-04-17] MEDS: FUROSEMIDE 20 MG TAB PO SCH (08:26)
[2016-04-17] MEDS: FENOFIBRATE 145 MG TAB PO SCH (08:26)
[2016-04-17] MEDS: DIVALPROEX SODIUM 500 MG EXT REL TAB PO SCH ×2 (08:26→20:22)
[2016-04-17] MEDS: METOPROLOL TARTRATE 50 MG TAB PO SCH ×2 (08:27→20:22)
[2016-04-17] MEDS: CLOPIDOGREL 75 MG TAB PO SCH (08:27)
[2016-04-17] MEDS: RAMIPRIL 2.5 MG CAP PO SCH (08:27)
[2016-04-17] MEDS: FLUTICASONE/SALMETEROL 250/50 DISKUS INH SCH ×2 (08:47→20:10)
[2016-04-17] MEDS: CEFTRIAXONE 1 GM in D5W 100 ML IV SCH (09:07)
[2016-04-17] MEDS: PROBIOTIC BLEND TAB PO SCH ×2 (11:45→18:39)
[2016-04-17] MEDS: ACETAMINOPHEN 325 MG/TAB TABLET PO PRN ×2 (14:19→23:20)
[2016-04-17] MEDS: ENOXAPARIN 40 MG/0.4 ML PFS SQ SCH (17:00)
[2016-04-17] MEDS: ATORVASTATIN 10 MG TAB PO SCH (17:00)
--- NOTE | 2016-04-17 17:17 | GENMEDPROG ---
Chief Complaint: recent rti no more burning on urination Notes Reviewed: Yes Events from last night noted and discussed with Clinical Staff Current Medication List: Reviewed Currently: Reports: Tobacco Use/Hx. Denies: Cough, Wheezing, PAN, SOB, Nausea and Vomiting, Abdominal Pain, Chest Pain DVT Prophylaxis: Yes - Physical Examination Vital Signs and I&O: Last Vital Signs Temp 98.3 F 04/17/16 13:14 Pulse 91 04/17/16 13:14 Resp 20 04/17/16 13:14 BP 116/54 L 04/17/16 13:14 Pulse Ox 94 04/17/16 13:14 Oxygen Pulse Oxygen Saturation 94 O2 Device Room Air Oxygen Flow Rate Fraction of Inspired Oxygen ( FIO2) Intake & Output 04/14/16 04/15/16 04/16/16 04/17/16 23:59 23:59 23:59 23:59 Intake Total 2286 1779 100 Output Total 125 1200 1540 Balance 2161 579 -1440 Patient's weight 67.132 kg 68.748 kg 69.116 kg General: Alert, Cooperative, Mild distress. negative: Oriented x3 (Still confused), Well appearing (Ill-appearing) HEENT: Normal, PERRLA, EOMI, Anicteric Sclera Neck: Non-tender, Full range of motion, Normal Trachea alignment, Normal inspection. negative: JVD Lymphatics: Normal (no adenopathy). negative: Adenopathy Respiratory: Normal - CTA (BBS clear to auscultation without adventitious sounds ) Cardiovascular: Regular rate and rhythm, No Gallops,Rubs/Murmurs GI: Normal bowel sounds, Soft, Non tender, No hepatospenomegaly Extremities/Musculoskeletal: Normal pulses. negative: Tenderness, Swelling, Edema Skin: Warm,Dry and Intact, No rashes, No breakdown, No significant lesion Neurological: Normal speech, Strength at 5/5 X4 ext, Normal tone Psych/Mental Status: Confused Lab/DI/Studies Reviewed: 04/17/16 07:00 04/17/16 07:00 Laboratory Results - last 24 hr 04/16/16 04/17/16 04/17/16 19:56 05: 07:00 WBC RBC Hgb Hct MCV MCH MCHC RDW Plt Count MPV Neut % (Auto) Lymph % (Auto) [place] % (Auto) Eos % (Auto) Baso % (Auto) Absolute Neuts (auto) Absolute Lymphs (auto) Sodium 144 Potassium 3.9 Chloride 114 H Carbon Dioxide 21 L Anion Gap 13 BUN 20 H Creatinine 0.80 Estimated GFR (MDRD) > 60 Glucose 110 H POC Capillary Glucose 126 H 131 H Calculated Osmolality 281 Calcium 8.2 L 04/17/16 04/17/16 04/17/16 07:00 11:17 15:59 WBC 8.9 RBC 2.05 L Hgb 7.0 L D Hct 21.3 L MCV 104 H MCH 34.3 H MCHC 33.0 RDW 15.0 H Plt Count 210 MPV 8.0 Neut % (Auto) 69.9 Lymph % (Auto) 17.8 [place] % (Auto) 11.4 H Eos % (Auto) 0.6 Baso % (Auto) 0.3 Absolute Neuts (auto) 6.14 Absolute Lymphs (auto) 1.51 Sodium Potassium Chloride Carbon Dioxide Anion Gap BUN Creatinine Estimated GFR (MDRD) Glucose POC Capillary Glucose 92 106 H Calculated Osmolality Calcium - Assessment (1) Anemia Acute D64.9 - ANEMIA, UNSPECIFIED Qualifiers: Anemia type: unspecified type Qualified Code(s): D64.9 - Anemia, unspecified Comment/Plan: New diagnosis for her and is much worse today. Partially the anemia is exacerbated by rehydration. She is on aspirin and Plavix. Monitor for bleeding. She is unable to state whether or not she has had any bleeding. MCV is elevated at 104 and may have a bimodal population of red cells. Check B12 folic acid iron ferritin and transferrin levels. Stool for Hemoccult ordered. Transfusing 2 units pack cells. (2) Ambulatory dysfunction Acute R26.2 - DIFFICULTY IN WALKING, NOT ELSEWHERE CLASSIFIED Comment/Plan: Treat above issues. Physical therapy. (3) UTI (urinary tract infection) Acute N39.0 - URINARY TRACT INFECTION, SITE NOT SPECIFIED Qualifiers: Urinary tract infection type: acute cystitis Hematuria presence: without hematuria Qualified Code(s): N30.00 - Acute cystitis without hematuria Comment/Plan: Much more alert and interactive today. However still confused. Continue IV fluids and IV antibiotics. Culture e coli sens to Rocephin. (4) Cerebrovascular disease Acute I67.9 - CEREBROVASCULAR DISEASE, UNSPECIFIED Comment/Plan: Continue aspirin and Plavix monitor neuro status (5) DM (diabetes mellitus), type 2 with peripheral vascular complications Acute E11.51 - TYPE 2 DIABETES W DIABETIC PERIPHERAL ANGIOPATH W/O GANGRENE Comment/Plan: Continue Lantus and oral agents, continue ADA diet and sliding scale regular insulin . No hypoglycemia (6) Tobacco abuse Acute Z72.0 - TOBACCO USE Comment/Plan: Encourage complete smoking cessation , start Nicotine patch. (7) Hypothyroidism Chronic E03.9 - HYPOTHYROIDISM, UNSPECIFIED Qualifiers: Hypothyroidism type: acquired Qualified Code(s): E03.9 - Hypothyroidism, unspecified Comment/Plan: TSH is overly suppressed with an elevated T4 indicative of too much Synthroid. Will decrease the dose to 125 mcg a day from 150. Case Care Discussed with: Patient, Nursing Staff, Resource Management Education/Counseling Given To: Patient Education/Counseling Given Regarding: Diagnosis Total Time: 39 min Critical Care: No Code: 68103 (12+)
[2016-04-17] MEDS ORDERED: DIPHENHYDRAMINE 50 MG/ML VIAL IV ONE (18:13)
[2016-04-17] MEDS: DOXEPIN 10 MG CAP PO SCH (20:22)
[2016-04-17] MEDS: MONTELUKAST SODIUM 10 MG TAB PO SCH (20:22)
[2016-04-17] MEDS: ROPINIROLE 1 MG TAB PO SCH (20:22)
[2016-04-17] MEDS ORDERED: FUROSEMIDE 20 MG/2 ML VIAL IV ONE (21:13)
[2016-04-17] MEDS ORDERED: LEVOTHYROXINE 150 MCG (0.15 MG)TAB PO SCH (22:54)
[2016-04-18 04:31] VITALS: PULSE 92
[2016-04-18] MEDS: PANTOPRAZOLE 40 MG TAB PO SCH (04:54)
[2016-04-18] MEDS: REGULAR INSULIN 100 UNITS/ML - 3 ML VIAL SQ SCH ×2 (04:54→11:21)
[2016-04-18] MEDS: ONDANSETRON HCL 4 MG/2 ML VIAL IV PRN (05:36)
[2016-04-18 05:38] VITALS: BP 151/72; TEMP 98.2
[2016-04-18 05:54] VITALS: BMI 23.4
[2016-04-18 06:09] LABS: AUTOMATED BASOPHIL 1.1 % (0-2); AUTOMATED EOSINOPHIL 1.9 % (0-5); AUTOMATED LYMPH 18.3 % (17-44); AUTOMATED MONOCYTE 10.9 % (3-10); AUTOMATED NEUTROPHIL 67.8 % (45-76); MPV 8.2 fL (7.4-10.4)
[2016-04-18 06:47] LABS: % SATURATION 19.3 % (15-50)
[2016-04-18 07:43] LABS: FOLATES 8.51 ng/mL (>2.76)
[2016-04-18] MEDS: FLUTICASONE/SALMETEROL 250/50 DISKUS INH SCH (08:22)
[2016-04-18] MEDS: FENOFIBRATE 145 MG TAB PO SCH (08:37)
[2016-04-18] MEDS: FUROSEMIDE 20 MG TAB PO SCH (08:38)
[2016-04-18] MEDS: METOPROLOL TARTRATE 50 MG TAB PO SCH (08:38)
[2016-04-18] MEDS: RAMIPRIL 2.5 MG CAP PO SCH (08:38)
[2016-04-18] MEDS: DIVALPROEX SODIUM 500 MG EXT REL TAB PO SCH (08:38)
[2016-04-18] MEDS: CLOPIDOGREL 75 MG TAB PO SCH (08:38)
[2016-04-18] MEDS ORDERED: LEVOTHYROXINE 125 MCG (0.125 MG) TAB PO SCH (09:00)
[2016-04-18] MEDS: CEFTRIAXONE 1 GM in D5W 100 ML IV SCH (09:30)
--- NOTE | 2016-04-18 10:37 | PCM.DCS92 ---
- Final/Secondary Discharge Diagnosis (1) Anemia Acute D64.9 - ANEMIA, UNSPECIFIED Present on Admission: Yes unspecified type D64.9 - Anemia, unspecified Comment: New diagnosis for her and is much worse today. Partially the anemia is exacerbated by rehydration. She is on aspirin and Plavix. Monitor for bleeding. She is unable to state whether or not she has had any bleeding. MCV is elevated at 104 and may have a bimodal population of red cells. Check B12 folic acid iron ferritin and transferrin levels. Stool for Hemoccult ordered. Transfusing 2 units pack cells. (2) Ambulatory dysfunction Acute R26.2 - DIFFICULTY IN WALKING, NOT ELSEWHERE CLASSIFIED Present on Admission: Yes Comment: Treat above issues. Physical therapy. (3) UTI (urinary tract infection) Acute N39.0 - URINARY TRACT INFECTION, SITE NOT SPECIFIED Present on Admission: Yes acute cystitis without hematuria N30.00 - Acute cystitis without hematuria Comment: Much more alert and interactive today. However still confused. Continue IV fluids and IV antibiotics. Culture e coli sens to Rocephin. (4) DM (diabetes mellitus), type 2 with peripheral vascular complications Chronic E11.51 - TYPE 2 DIABETES W DIABETIC PERIPHERAL ANGIOPATH W/O GANGRENE Present on Admission: Yes Comment: Continue Lantus and oral agents, continue ADA diet and sliding scale regular insulin . No hypoglycemia (5) Tobacco abuse Chronic Z72.0 - TOBACCO USE Present on Admission: Yes Comment: Encourage complete smoking cessation, start Nicotine patch. (6) Hypothyroidism Chronic E03.9 - HYPOTHYROIDISM, UNSPECIFIED acquired E03.9 - Hypothyroidism, unspecified Comment: TSH is overly suppressed with an elevated T4 indicative of too much Synthroid. Will decrease the dose to 125 mcg a day from 150. (7) Cerebrovascular disease Chronic I67.9 - CEREBROVASCULAR DISEASE, UNSPECIFIED Present on Admission: Yes Comment: Continue aspirin and Plavix monitor neuro status (8) Bronchitis Acute J40 - BRONCHITIS, NOT SPECIFIED ACUTE OR CHRONIC Present on Admission: Yes Comment: Zithromax and Keflex for infections. Discharge Disposition: Assisted Living Facility Discharge Condition: Improved Cognitive Discharge Status: Unimpaired Fuctional Discharge Status: Walker Assistance Physician Follow up/Referrals: Abner Caba MD [Primary Care Provider] - One Week New Prescriptions: Azithromycin [Zithromax Tri-Helder] 500 mg PO DAILY #6 tablet Cephalexin Monohydrate [Keflex] 500 mg PO Q8H #30 cap L. Acidophilus/Strept/LA P-Ben [Risaquad Capsules] 1 cap PO BID #30 capsule Levothyroxine [Synthroid, Levoxyl] 125 mcg PO DAILY #100 tablet Discharge Home Medication List Clopidogrel Bisulfate [Plavix] 75 mg PO DAILY 09/08/12 [History Confirmed Last Taken 04/14/16] Ramipril [Altace] 2.5 mg PO DAILY 09/08/12 [History Confirmed 04/15/16 Last Taken 04/14/16] Fenofibrate [Lofibra] 160 mg PO DAILY 01/10/14 [History Confirmed 04/15/16 Last Taken 04/14/16] Insulin Glargine [Lantus Pen] 24 units SQ HS 01/10/14 [History Confirmed Last Taken 04/14/16] Omeprazole [Prilosec] 40 mg PO DAILY 01/10/14 [History Confirmed 04/15/16 Last Taken 04/14/16] Furosemide [Lasix] 20 mg PO DAILY #14 tablet 08/08/15 [Rx Confirmed 04/15/16 Last Taken 04/14/16] Budesonide [Pulmicort] 0.5 mg NEB DAILY PRN 10/02/15 [History Confirmed Last Taken 10/01/15] Fluticasone/Salmeterol [Advair 250-50] 1 puff INH BID 10/02/15 [History Confirmed 04/15/16 Last Taken 01/28/16 08:40] Montelukast Sodium [Singulair] 10 mg PO QHS 10/02/15 [History Confirmed Last Taken 04/14/16] Ropinirole HCl 1 mg PO QHS 10/02/15 [History Confirmed 04/15/16 Last Taken 04/14] Divalproex Sodium [Divalproex Sodium ER] 500 mg PO BID 01/21/16 [History Confirmed 04/15/16 Last Taken 04/14/16] Doxepin HCl 10 mg PO HS 01/21/16 [History Confirmed 04/15/16 Last Taken 04/14/16 ] Acetaminophen Tablet [TYLENOL Tablet] 650 mg PO Q6H PRN #1 tablet 01/25/16 [Rx Confirmed 04/15/16 Last Taken 01/28/16 13:32] Alprazolam [Xanax] 0.5 mg PO BID PRN #60 tablet 01/25/16 [Rx Confirmed 04/15/16 Last Taken 04/14/16] Aspirin (Enteric Coated) [Halfprin] 81 mg PO DAILYWM #30 tablet 01/25/16 [Rx Confirmed 04/15/16 Last Taken 04/14/16] Atorvastatin Calcium [Lipitor] 10 mg PO DAILY@1800 #30 tablet 01/25/16 [Rx Confirmed 04/15/16 Last Taken 04/14/16] POTASSIUM CHLORIDE Tablet [K-DUR 20 mEq Tablet*] 20 meq PO BIDWM #60 tab.er.prt 01/25/16 [Rx Confirmed 04/15/16 Last Taken 04/10/16] Metformin HCl 1,000 mg PO BID #20 tab 04/11/16 [Rx Confirmed 04/15/16 Last Taken 04/14/16] Guaifenesin [Robitussin] 10 ml PO Q6H PRN 04/15/16 [History Confirmed 04/15/16 Last Taken 04/09/15] Mag Hydrox/Al Hydrox/Simeth [Maalox Suspension] 30 ml PO QID PRN MDD 120ML 04/15 [History Confirmed 04/15/16 Last Taken Unknown] Metoprolol Tartrate [Lopressor] 50 mg PO BID 04/15/16 [History Confirmed Last Taken 04/14/16] Oseltamivir Phosphate [Tamiflu] 75 mg PO DAILY 04/15/16 [History Confirmed 04/15 Last Taken 04/14/16] Oxycodone HCl/Acetaminophen [Percocet 5-325 mg Tablet] 1 tab PO TID 04/15/16 [ History Confirmed 04/15/16 Last Taken 04/15/16] Phosp Acid/Dextrose/Fructose [Emetrol Oral Solution] 30 ml PO .[id number] PRN MDD 120ML 04/15/16 [History Confirmed 04/15/16 Last Taken Unknown] Azithromycin [Zithromax Tri-Helder] 500 mg PO DAILY #6 tablet 04/18/16 [Rx Last Taken Unknown] Cephalexin Monohydrate [Keflex] 500 mg PO Q8H #30 cap 04/18/16 [Rx Last Taken Unknown] L. Acidophilus/Strept/LA P-Ben [Risaquad Capsules] 1 cap PO BID #30 capsule [Rx Last Taken Unknown] Levothyroxine [Synthroid, Levoxyl] 125 mcg PO DAILY #100 tablet 04/18/16 [Rx Last Taken Unknown] 04/18/16 05:45 04/17/16 07:00 Laboratory Results - last 24 hr 04/15/16 04/17/16 04/17/16 10:40 11:17 15:59 WBC RBC Hgb Hct MCV MCH MCHC RDW Plt Count MPV Neut % (Auto) Lymph % (Auto) [place] % (Auto) Eos % (Auto) Baso % (Auto) Absolute Neuts (auto) Absolute Lymphs (auto) POC Capillary Glucose 92 106 H Iron TIBC % Saturation Ferritin Vitamin B12 Serum Folate Blood Type B POSITIVE Antibody Screen Negative Crossmatch See Detail 04/17/16 04/18/16 04/18/16 20:32 05:30 05:45 WBC RBC Hgb Hct MCV MCH MCHC RDW Plt Count MPV Neut % (Auto) Lymph % (Auto) [place] % (Auto) Eos % (Auto) Baso % (Auto) Absolute Neuts (auto) Absolute Lymphs (auto) POC Capillary Glucose 98 105 H Iron TIBC % Saturation Ferritin Vitamin B12 374 Serum Folate 8.51 Blood Type Antibody Screen Crossmatch 04/18/16 04/18/16 05:45 05:45 WBC 7.3 RBC 3.27 L Hgb 10.6 L D Hct 31.6 L MCV 97 MCH 32.4 H MCHC 33.6 RDW 19.8 H Plt Count 204 MPV 8.2 Neut % (Auto) 67.8 Lymph % (Auto) 18.3 [place] % (Auto) 10.9 H Eos % (Auto) 1.9 Baso % (Auto) 1.1 Absolute Neuts (auto) 4.89 Absolute Lymphs (auto) 1.31 POC Capillary Glucose Iron 54.0 TIBC 279 % Saturation 19.3 Ferritin 270.0 H Vitamin B12 Serum Folate Blood Type Antibody Screen Crossmatch O2 Device: Room Air Diet at Discharge: As Tolerated Activity: As Tolerated - DC Summary Notes Hospital Course Note:: Discharge summary on patient named YOSELIN GLORIA CASS admitted to [facility] on 04/15/16 by Zheng Kimball MD. Date of discharge is [] . Total Time: 40 min Code: 53857 (>30min.) - Physical Exam Vital Signs: Last Vital Signs Temp 98.2 F 04/18/16 05:30 Pulse 92 04/18/16 05:30 Resp 17 04/18/16 05:30 BP 151/72 04/18/16 05:30 Pulse Ox 100 04/18/16 05:30 Oxygen Pulse Oxygen Saturation 100 O2 Device Room Air Oxygen Flow Rate Fraction of Inspired Oxygen ( FIO2) Constitutional: No apparent distress, Alert (Awake), Confused. negative: Well appearing (Acutely ill-appearing) Oriented to: Time, Person, Place - HEENT Head: Normal ( normocephalic) Eye: Normal (PERRL, EOMI, Sclera white) Oropharynx: Normal (Pharynx:Moist without exudate,Gums-no swelling) ENT EAC: Normal TMJ: Normal Nose: No Symptoms Reported (septum midline) - Respiratory/Cardiovascular Respiratory: Diminished, Rhonchi (w/cough), Wheezes (occ) Cardiovascular: Normal (RRR , Normal S1, S2. No murmurs, rubs, or gallops. PMI non-displaced. Carotids: no carotid bruits. No bradycardia or tachycardia. DP pulses 2+ bilaterally.) - GI Auscultation: Normal (NABS) Palpation: Normal (Soft,No rebound or guarding, non distended) Tenderness: Non tender Winters's Sign: Negative Rectal Exam: Heme negative stool Stool: Brown - Musculoskeletal Back: Normal (Non-Tender). negative: Abrasion Extremities: Normal (Normal tone, Pulses 2+ No cyanosis or edema, FROM), Femoral Pulse, Pedal Pulse. negative: Calf Tenderness - Integumentary Skin: Normal (Warm dry no rashes) Lymphatics: Normal (no adenopathy). negative: Adenopathy - Neurologic Memory Impaired: Short-term, Long-term Motor Function: Normal (Motor 5/5 throughout.Normal tone, Pulses 2+ No cyanosis or edema, FROM) Cranial Nerve: Normal (CN II-XII intact sensation, strength 5/5) Cerebellar: Normal Mood Description: Anxious Thought: negative: Coherent Perception: negative: Normal
[2016-04-18] MEDS: PROBIOTIC BLEND TAB PO SCH (11:36)
[2016-04-18] MEDS: NS 1,000 ML IV SCH (12:48)
== END 2016-04-18 14:48 | DRG 683 ==
LOC: ED 06:55 → TUOBSINP 10:38 → MPS3 18:11
PROVIDERS: ADMIT Hospitalist; ATTEND Internal Medicine
PROC: 30233N1 Transfusion of Nonautologous Red Blood Cells into Peripheral Vein, Percutaneous Approach (ICD-10-PCS; principal; 2016-04-18)
DX: N17.9 Acute kidney failure, unspecified (principal); N30.00 Acute cystitis without hematuria; E11.51 Type 2 diabetes mellitus with diabetic peripheral angiopathy without gangrene; J44.9 Chronic obstructive pulmonary disease, unspecified; J44.0 Chronic obstructive pulmonary disease with (acute) lower respiratory infection; E87.5 Hyperkalemia; B96.20 Unspecified Escherichia coli [E. coli] as the cause of diseases classified elsewhere; D64.9 Anemia, unspecified; R26.2 Difficulty in walking, not elsewhere classified; E86.0 Dehydration; Z91.81 History of falling; I67.9 Cerebrovascular disease, unspecified; Z79.02 Long term (current) use of antithrombotics/antiplatelets; Z79.82 Long term (current) use of aspirin; Z79.899 Other long term (current) drug therapy; E03.9 Hypothyroidism, unspecified; I25.10 Atherosclerotic heart disease of native coronary artery without angina pectoris; J45.909 Unspecified asthma, uncomplicated; I12.9 Hypertensive chronic kidney disease with stage 1 through stage 4 chronic kidney disease, or unspecified chronic kidney disease; N18.9 Chronic kidney disease, unspecified; K21.9 Gastro-esophageal reflux disease without esophagitis; E78.00 Pure hypercholesterolemia, unspecified; J20.9 Acute bronchitis, unspecified; T38.1X5A Adverse effect of thyroid hormones and substitutes, initial encounter; Z86.73 Personal history of transient ischemic attack (TIA), and cerebral infarction without residual deficits; Z79.4 Long term (current) use of insulin; F17.210 Nicotine dependence, cigarettes, uncomplicated
CPT/HCPCS: 36415; 36430; 51701; 51798; 71020; 80048; 80053; 80164; 81001; 82043; 82270; 82607; 82728; 82746; 82962; 83036; 83540; 83550; 83605; 84439; 84443; 84466; 84481; 84484; 85007; 85025; 85027; 86850; 86900; 86901; 86920; 87040; 87077; 87086; 87186; 94640; 96361; 96365; 96372; 97162; 99285; 99406; J0696; J1200; J1650; J1940; J2405; J3490; J7060; P9016

== ENCOUNTER 2016-05-04 18:49 | Emergency (ER) | payer MEDICARE, MEDICAID ==
[2016-05-04 19:00] VITALS: TEMP 98.2; BMI 25.7
[2016-05-04] MEDS ORDERED: HYDROCODONE 5 MG/ACETAMIN 325 MG TAB PO ONE (19:30)
--- NOTE | 2016-05-04 19:30 | EDPRACDOC ---
- General Information Chief Complaint: Fall Stated Complaint: FALL Time Seen by Provider: 05/04/16 19:18 Information Source: Patient, [facility], [employer] Home Medications: Home Medications Clopidogrel Bisulfate [Plavix] 75 mg PO DAILY 09/08/12 Ramipril [Altace] 2.5 mg PO DAILY 09/08/12 Fenofibrate [Lofibra] 160 mg PO DAILY 01/10/14 Omeprazole [Prilosec] 40 mg PO DAILY 01/10/14 Furosemide [Lasix] 20 mg PO DAILY #14 tablet 08/08/15 Budesonide [Pulmicort] 0.5 mg NEB DAILY PRN 10/02/15 Montelukast Sodium [Singulair] 10 mg PO QHS 10/02/15 Ropinirole HCl 1 mg PO QHS 10/02/15 Divalproex Sodium [Divalproex Sodium ER] 500 mg PO BID 01/21/16 Doxepin HCl 10 mg PO HS 01/21/16 Acetaminophen Tablet [TYLENOL Tablet] 650 mg PO Q6H PRN #1 tablet 01/25/16 Alprazolam [Xanax] 0.5 mg PO BID PRN #60 tablet 01/25/16 Aspirin (Enteric Coated) [Halfprin] 81 mg PO DAILYWM #30 tablet 01/25/16 Atorvastatin Calcium [Lipitor] 10 mg PO DAILY@1800 #30 tablet 01/25/16 POTASSIUM CHLORIDE Tablet [K-DUR 20 mEq Tablet*] 20 meq PO BIDWM #60 tab.er.prt 01/25/16 Metformin HCl 1,000 mg PO BID #20 tab 04/11/16 Guaifenesin [Robitussin] 10 ml PO Q6H PRN 04/15/16 Mag Hydrox/Al Hydrox/Simeth [Maalox Suspension] 30 ml PO QID PRN MDD 120ML 04/15 Metoprolol Tartrate [Lopressor] 50 mg PO BID 04/15/16 Oxycodone HCl/Acetaminophen [Percocet 5-325 mg Tablet] 1 tab PO TID 04/15/16 Phosp Acid/Dextrose/Fructose [Emetrol Oral Solution] 30 ml PO .[id number] PRN MDD 120ML 04/15/16 L. 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 Location: Reports: Frontal Pain Quality: Reports: Moderate, Throbbing Modifying Factors: Denies: Medication, Exposure to light, Cold therapy, Immobilization, Movement, Rest Prior work up: Denies: NO, O, CT, LP, MRI, Neurologist Relevant History of: Reports: None Associated Signs and Symptoms: Denies: Confusion, Fatigue, Facial Pain, Fever/ Chills, Flushing, Loss of Consciousness, Nausea/Vomiting, Nasal Congestion, Nasal Drainage, Numbness in Legs/Feet, Rash, Seizures, Sinus Infection, Stiff Neck, Vision Changes, Weakness ED Past Medical History - History Reviewed Yes Nurses notes reviewed and agree except as marked - Patient Medical History Neurological History: Reports: Cerebrovascular Accident ("Mini Strokes" several) Cardiac History: Reports: Coronary Artery Disease, Hypertension, Cardiac Catheterization (1974), Stress Test ([place] ([facility])), Hypercholesterolemia, Syncope (TIAs, Stroke) Respiratory History: Reports: Asthma, COPD, Pneumonia, Emphysema GI/ History: Reports: Urinary Tract Infection, Gastroesophageal Reflux Musculoskeletal History: Reports: Arthritis, Gout, Osteoarthritis Psychological History: Reports: Anxiety, Bipolar Disorder. Denies: Depression, Substance Use Disorder Systemic History: Reports: Cancer (Lung cancer treated with radiation but no surgery), Anemia, Diabetes, Hypothyroidism Surgical History: Reports: Cholecystectomy, Hysterectomy, Cardiac Catheterization (1974), Hernia Surgery (ventral hernia repair), Tonsillectomy/ Adnoidectomy, Other (B lens implants,ventral hernia repair, aortoiliac BYPASS, fem-pop L) Date of Last Radiation Treatment: 2010 Date of Last Chemotherapy Date: 2010 - Family Medical History Reports: Hypertension (Mother), Diabetes (Mother), Cancer (Mother,Father), Cardiac Disorders (Mother). Denies: Stroke - Social Medical History Smoking Status: Heavy tobacco smoker (5 or more cigarettes/day or daily pipe/ cigar) Social History: Denies: Substance Use Disorder ETOH: None Substance Abuse: None Lives In: Assisted Living EDM Review of Systems - Review of Systems Constitutional: negative: Chills, Fever Eyes: negative: Blurred Vision, Double Vision Ears: negative: Drainage Throat: negative: Pain Nose: negative: Bleeding Respiratory: negative: Cough, Shortness of Breath, Wheezing Cardiovascular: negative: Chest Pain, Palpitations Gastrointestinal: negative: Diarrhea, Nausea, Pain, Vomiting Genitourinary: negative: Dysuria, Frequency Neurological: Headache. negative: Dizziness, Numbness, Weakness Musculoskeletal: No Symptoms Reported Integumentary: Bruising - Physical Exam Constitutional: Alert (Awake), No apparent distress Oriented to: Time, Person, Place Last recorded Vital Signs: Last Vital Signs Temp 98.2 F 05/04/16 18:57 Pulse 86 05/04/16 18:57 Resp 18 05/04/16 18:57 BP 124/57 L 05/04/16 18:57 Pulse Ox 99 05/04/16 18:57 Oxygen Pulse Oxygen Saturation 99 O2 Device Oxygen Flow Rate Fraction of Inspired Oxygen ( FIO2) - HEENT Head: Swelling (LARGE HEMATOMA FOREHEAD) Eye Exam: Normal (PERRL, EOMI, Sclera white) Oropharynx: Normal (Pharynx:Moist without exudate,Gums-no swelling) Tympanic Membrane: Normal ENT EAC: Normal TMJ: Normal Nose: No Symptoms Reported (septum midline) Neck: Normal (FROM, trachea at midline) - Respiratory/Cardiovascular Respiratory: Normal - CTA (BBS clear to auscultation without adventitious sounds ) Cardiovascular: Normal (RRR without murmur, gallop or rub) - GI Auscultation: Normal (NABS) Palpation: Normal (Soft,No rebound or guarding, non distended) Tenderness: Non tender Winters's Sign: Negative - Musculoskeletal Back: Normal (Non-Tender) Extremities: Normal (Normal tone, Pulses 2+ No cyanosis or edema, FROM) - Integumentary Skin: Normal, Warm, Dry Lymphatics: Normal (no adenopathy) - Neurologic Memory Impaired: Normal Motor Function: Normal (Normal tone, Pulses 2+ No cyanosis or edema, FROM) Cranial Nerve: Normal (CN II-X11 intact sensation, strength 5/5) Cerebellar: Normal Mood Description: Normal Perception: Normal - Differential Diagnosis Closed Head Injury, Fracture, Other Bone, Skull Fracture, ICH, SDH, EDH - Diagnostic Imaging CT HEAD Image interpreted by: Radiologist Diagnostic Imaging Comments: CT HEAD WITHOUT CONTRAST TECHNIQUE: Contiguous axial images were obtained from the base of the skull through the vertex without intravenous contrast. COMPARISON: CT head without contrast 04/14/2016. FINDINGS: A frontal soft tissue scalp hematoma is just to the right of midline, measuring 5.4 x 0.9 cm. There is no underlying fracture. The hematoma extends to the superior aspect of the nose. There is no underlying nasal fracture. Fluid in the right sphenoid sinus appears chronic. The paranasal sinuses are otherwise clear. There is some fluid in left mastoid air cells. No associated fracture is evident. No significant extra-axial hemorrhage is present. There is some beam hardening artifact subjacent to the scalp hemorrhage without a significant intracranial hemorrhage. Moderate atrophy and white matter disease is again seen. Remote lacunar infarcts of the basal ganglia bilaterally stable. Remote lacunar infarcts are again seen of the bowel my. The ventricles are proportionate to the degree of atrophy. There is no significant extra-axial fluid collection. IMPRESSION: 1. Prominent frontal scalp hematoma extending to the bridge of the nose without an underlying fracture. 2. Stable atrophy and white matter disease. 3. Remote lacunar infarcts of the basal ganglia are stable. 4. No acute intracranial abnormality. 5. Fluid in the right sphenoid sinus is chronic. 6. Left mastoid effusion. Decision Time to Discharge: 20:59 - Departure Disposition: Home Condition: Stable Final Diagnosis: Traumatic hematoma of forehead Qualifiers: Encounter type: initial encounter Qualified Code(s): S00.83XA - Contusion of other part of head, initial encounter Instructions: RICE: Routine Care for Injuries Education/Counseling Given To: Patient Education/Counseling Given Regarding: Diagnosis, Treatment, Prognosis, Follow Up Referrals: Abner Caba MD [Primary Care Provider] - One Week Prescriptions: No Action Ramipril [Altace] 2.5 mg PO DAILY Clopidogrel Bisulfate [Plavix] 75 mg PO DAILY Fenofibrate [Lofibra] 160 mg PO DAILY Omeprazole [Prilosec] 40 mg PO DAILY Furosemide [Lasix] 20 mg PO DAILY #14 tablet Ropinirole HCl 1 mg PO QHS Montelukast Sodium [Singulair] 10 mg PO QHS Budesonide [Pulmicort] 0.5 mg NEB DAILY PRN PRN Reason: Shortness Of Breath Divalproex Sodium [Divalproex Sodium ER] 500 mg PO BID Doxepin HCl 10 mg PO HS Acetaminophen Tablet [TYLENOL Tablet] 650 mg PO Q6H PRN #1 tablet PRN Reason: Mild Pain Or Fever Above 100.4 Aspirin (Enteric Coated) [Halfprin] 81 mg PO DAILYWM #30 tablet Atorvastatin Calcium [Lipitor] 10 mg PO DAILY@1800 #30 tablet POTASSIUM CHLORIDE Tablet [K-DUR 20 mEq Tablet*] 20 meq PO BIDWM #60 tab.er.prt Alprazolam [Xanax] 0.5 mg PO BID PRN #60 tablet PRN Reason: Anxiety Metformin HCl 1,000 mg PO BID #20 tab Mag Hydrox/Al Hydrox/Simeth [Maalox Suspension] 30 ml PO QID PRN MDD 120ML PRN Reason: INDIGESTION Phosp Acid/Dextrose/Fructose [Emetrol Oral Solution] 30 ml PO .[id number] PRN MDD 120ML PRN Reason: Nausea Oxycodone HCl/Acetaminophen [Percocet 5-325 mg Tablet] 1 tab PO TID Metoprolol Tartrate [Lopressor] 50 mg PO BID Guaifenesin [Robitussin] 10 ml PO Q6H PRN PRN Reason: Cough Levothyroxine [Synthroid, Levoxyl] 125 mcg PO DAILY #100 tablet L. Acidophilus/Strept/LA P-Ben [Risaquad Capsules] 1 cap PO BID #30 capsule Neomy Sulf/Bacitrac Zn/Poly [Neosporin Antibiotic Ointment] 1 gm TOP DAILY Additional Instructions: CONTINUE YOUR USUAL MEDICATIONS BEFORE, APPLY COLD COMPRESSES NEEDED FOR SWELLING AND BRUISING.
--- NOTE | 2016-05-04 20:34 | DIRPT ---
CLINICAL DATA: Fall. Scalp hematoma. Personal history of lung cancer. EXAM: CT HEAD WITHOUT CONTRAST TECHNIQUE: Contiguous axial images were obtained from the base of the skull through the vertex without intravenous contrast. COMPARISON: CT head without contrast 04/14/2016. FINDINGS: A frontal soft tissue scalp hematoma is just to the right of midline, measuring 5.4 x 0.9 cm. There is no underlying fracture. The hematoma extends to the superior aspect of the nose. There is no underlying nasal fracture. Fluid in the right sphenoid sinus appears chronic. The paranasal sinuses are otherwise clear. There is some fluid in left mastoid air cells. No associated fracture is evident. No significant extra-axial hemorrhage is present. There is some beam hardening artifact subjacent to the scalp hemorrhage without a significant intracranial hemorrhage. Moderate atrophy and white matter disease is again seen. Remote lacunar infarcts of the basal ganglia bilaterally stable. Remote lacunar infarcts are again seen of the bowel my. The ventricles are proportionate to the degree of atrophy. There is no significant extra-axial fluid collection. IMPRESSION: 1. Prominent frontal scalp hematoma extending to the bridge of the nose without an underlying fracture. 2. Stable atrophy and white matter disease. 3. Remote lacunar infarcts of the basal ganglia are stable. 4. No acute intracranial abnormality. 5. Fluid in the right sphenoid sinus is chronic. 6. Left mastoid effusion. Electronically Signed By: Paul Price M.D. On: 05/04/2016 20:31
[2016-05-04 22:31] VITALS: BP 117/78; PULSE 78
== END 2016-05-04 22:30 | disposition home or self-care (01) ==
LOC: ED 18:49
DX: S00.83XA Contusion of other part of head, initial encounter (principal); W06.XXXA Fall from bed, initial encounter; Y93.9 Activity, unspecified
CPT/HCPCS: 70450; 99283; A9270; J3490